=== PATIENT | female | born 1930 | race Caucasian/White ===

== ENCOUNTER 2016-08-06 08:51 | Inpatient (IN) | payer MEDICARE ==
[2016-08-04 10:22] VITALS: Ht 149.9 cm; Wt 46.7 kg
[2016-08-06] VITALS (20 sets, daily range): BP systolic 105–154; RESP 13–23; TEMP 97.2–99.4
[~2016-08-06] VITALS: Ht 149.9 cm; Wt 46.7 kg
[~2016-08-06 08:51] MED LIST: BACITRACIN 50,000 UNITS INJ IRRIG ONE; ESTROGEN VAG CR 30 GM VAG ONE; GENTAMICIN 80MG/2ML VIAL IV ONE; LIDOCAINE 1% 20ML NERVEBLOCK ONE; ROPIVACAINE 0.2% 20 ML VL NERVEBLOCK ONE
[2016-08-06] MEDS ORDERED: SODIUM CHLORIDE 0.9% IV ONE (10:35)
[2016-08-06] MEDS ORDERED: CEFOTETAN IV ONE (10:35)
[2016-08-06] MEDS ORDERED: LIDOCAINE 2% SYR 5 ML IV ONE (10:49)
[2016-08-06] MEDS ORDERED: FENTANYL 100 MCG/2 ML AMP ONE (10:49)
[2016-08-06] MEDS ORDERED: GLYCOPYRROLATE 0.2 MG/ML VIAL ONE (10:49)
[2016-08-06] MEDS ORDERED: PROPOFOL 20 ML VIAL IV ONE (10:49)
[2016-08-06] MEDS ORDERED: ROCURONIUM 50 MG VIAL IV ONE (10:49)
[2016-08-06] MEDS ORDERED: NEOSTIGMINE 10 MG/10 ML VIAL ONE (10:49)
[2016-08-06] MEDS ORDERED: GLYCOPYRROLATE 0.2 MG/ML VIAL IV ONE (10:50)
[2016-08-06] MEDS ORDERED: MIDAZOLAM 2 MG/2 ML INJ IV ONE (10:50)
[2016-08-06] MEDS ORDERED: LIDOCAINE 1% BUFFERED 1 ML SYR INTRADERM PRN (10:50)
[2016-08-06] MEDS ORDERED: LACT RINGERS 1,000 ML IV SCH (10:50)
[2016-08-06] MEDS ORDERED: MORPHINE 4 MG/ML SYR IV PRN (13:50)
[2016-08-06] MEDS ORDERED: ONDANSETRON 4 MG VIAL IV PRN (13:50)
[2016-08-06] MEDS ORDERED: DILAUDID 1 MG/ML AMP IV PRN ×2 (13:50→15:30)
[2016-08-06] MEDS ORDERED: MORPHINE 2 MG/ML SYR IV PRN (13:50)
[2016-08-06] MEDS ORDERED: OXYCODONE 5 MG TAB PO PRN ×2 (13:50→15:30)
[2016-08-06] MEDS ORDERED: MEPERIDINE 25 MG/ML IV PRN (13:50)
[2016-08-06] MEDS: SODIUM CHLORIDE 0.45% 1,000 ML IV SCH (16:57)
[2016-08-06] MEDS: ONDANSETRON 4 MG VIAL IV PRN (17:10)
[2016-08-06] MEDS: CEFTRIAXONE 1 GM in SODIUM CHLORIDE 0.9% 50 ML IV SCH (17:10)
[2016-08-07] MEDS: OXYCODONE 5 MG TAB PO PRN ×5 (00:32→23:47)
[2016-08-07] MEDS: SODIUM CHLORIDE 0.45% 1,000 ML IV SCH (03:14)
[2016-08-07 04:17] VITALS: BP_SYST 110; RESP 16; TEMP 98.3
[2016-08-07] MEDS: ONDANSETRON 4 MG VIAL IV PRN ×4 (05:37→23:47)
[2016-08-07 08:18] VITALS: BP_SYST 130; RESP 16; TEMP 97.7
[2016-08-07] MEDS: CEFTRIAXONE 1 GM in SODIUM CHLORIDE 0.9% 50 ML IV SCH (09:21)
[2016-08-07 10:00] VITALS: BP_SYST 116; BP_SYST 130; RESP 16; TEMP 97.7; TEMP 97.9
[2016-08-07 15:47] VITALS: BP_SYST 112; RESP 18; TEMP 98.6
[2016-08-07 19:42] VITALS: BP_SYST 120; RESP 18; TEMP 99
[2016-08-08 00:13] VITALS: BP_SYST 126; RESP 20; TEMP 98.9
[2016-08-08] MEDS ORDERED: SALINE FLUSH 10 ML FLUSH PRN (02:00)
[2016-08-08] MEDS: SALINE FLUSH 10 ML FLUSH SCH ×2 (02:03→08:11)
[2016-08-08 05:04] VITALS: BP_SYST 124; RESP 18; TEMP 98.3
[2016-08-08] MEDS: ONDANSETRON 4 MG VIAL IV PRN (05:52)
[2016-08-08] MEDS: OXYCODONE 5 MG TAB PO PRN (05:53)
[2016-08-08] MEDS ORDERED: SODIUM CHLORIDE 0.9% FLUSH BAG 500 ML IV SCH (06:00)
[2016-08-08 07:31] VITALS: BP_SYST 120; RESP 20; TEMP 98
[2016-08-08] MEDS: CEFTRIAXONE 1 GM in SODIUM CHLORIDE 0.9% 50 ML IV SCH (08:11)
[2016-08-08 10:47] VITALS: BP_SYST 120; RESP 20; TEMP 98
== END 2016-08-08 11:49 | disposition home or self-care (01) | DRG 748 ==
LOC: ENRESERVDT → ENRESERVTM → SURG 08:51 → 5THW 16:49 → SURG 08-07 12:13 → 5THW 08-07 12:14 → ENPENDDIS 08-07 12:14
PROVIDERS: ADMIT Urology; ATTEND Urology
PROC: 0USGXZZ Reposition Vagina, External Approach (ICD-10-PCS; 2016-08-06)
PROC: 0TSD4ZZ Reposition Urethra, Percutaneous Endoscopic Approach (ICD-10-PCS; 2016-08-06)
PROC: 0TJB8ZZ Inspection of Bladder, Via Natural or Artificial Opening Endoscopic (ICD-10-PCS; 2016-08-06)
PROC: 0JQC3ZZ Repair Pelvic Region Subcutaneous Tissue and Fascia, Percutaneous Approach (ICD-10-PCS; principal; 2016-08-06 13:23)
DX: N81.10 Cystocele, unspecified (principal); J44.9 Chronic obstructive pulmonary disease, unspecified; K21.9 Gastro-esophageal reflux disease without esophagitis; Z95.5 Presence of coronary angioplasty implant and graft; I10 Essential (primary) hypertension; N39.3 Stress incontinence (female) (male); N36.42 Intrinsic sphincter deficiency (ISD)
CPT/HCPCS: 80053; 84132; 85025